=== PATIENT | female | born 1975 | race Caucasian/White ===

== ENCOUNTER 2016-05-12 05:41 | Emergency (ER) | END 2016-05-12 09:08 | disposition home or self-care (01) | DX: R42 Dizziness and giddiness (principal); R40.2252 Coma scale, best verbal response, oriented, at arrival to emergency department; N30.00 Acute cystitis without hematuria; S33.5XXA Sprain of ligaments of lumbar spine, initial encounter; I10 Essential (primary) hypertension; R40.2142 Coma scale, eyes open, spontaneous, at arrival to emergency department; R40.2362 Coma scale, best motor response, obeys commands, at arrival to emergency department; X58.XXXA Exposure to other specified factors, initial encounter; Y92.9 Unspecified place or not applicable | CPT/HCPCS: 81001; 81003; 87086; J7030; Z7610 ==

== ENCOUNTER 2016-08-13 15:23 | Emergency (ER) | payer SELFPAY ==
[~2016-08-13] VITALS: Ht 162.6 cm; Wt 78.0 kg
[~2016-08-13 15:23] MED LIST: CEPH-443 PO; OXYC-279 PO
[2016-08-13 15:29] VITALS: Ht 162.6 cm; Wt 78.0 kg
== END 2016-08-13 19:58 | disposition left against medical advice (07) ==
LOC: FTE 15:23
DX: Z53.21 Procedure and treatment not carried out due to patient leaving prior to being seen by health care provider (principal)

== ENCOUNTER 2016-08-24 05:19 | Emergency (ER) | payer OTHER ==
[~2016-08-24] VITALS: Ht 162.6 cm; Wt 79.5 kg
[2016-08-24 05:25] VITALS: Ht 162.6 cm; Wt 79.5 kg
[2016-08-24 06:09] LABS: BASOPHIL # 0.1 10^3/ul (0.0-0.1); BASOPHILS % 0.5 % (0.0-2.0); EOSINOPHILS # 0.2 10^3/ul (0.0-0.5); EOSINOPHILS % 1.7 % (0.0-7.0); HEMOGLOBIN 13.1 g/dl (12.0-16.0); LYMPHOCYTES # 2.3 10^3/ul (0.8-2.9); LYMPHOCYTES % 21.5 % (15.0-51.0); MEAN CORPUSCULAR HEMOGLOBIN 28.9 pg (29.0-33.0); MEAN CORPUSCULAR HGB CONC 32.8 g/dl (32.0-37.0); MEAN CORPUSCULAR VOLUME 88.1 fl (82.0-101.0); MEAN PLATELET VOLUME 10.4 fl (7.4-10.4); MONOCYTE # 0.8 10^3/ul (0.3-0.9); MONOCYTES % 6.9 % (0.0-11.0); NEUTROPHIL # 7.5 10^3/ul (1.6-7.5); NEUTROPHILS % 69.1 % (39.0-77.0); PLATELET COUNT 378 10^3/UL (140-415); RED BLOOD COUNT 4.54 10^6/ul (4.20-5.40); RED CELL DISTRIBUTION WIDTH 14.5 % (11.5-14.5); WHITE BLOOD COUNT 10.9 10^3/ul (4.8-10.8)
[2016-08-24] MEDS ORDERED: SOD CHLORIDE 0.9% 1,000 ML IV STA (06:12)
[2016-08-24] MEDS ORDERED: FAMOTIDINE 20 MG INJ IV STA (06:12)
[2016-08-24 06:24] LABS: ADD SCAN DIFF NO
[2016-08-24 06:42] LABS: ALBUMIN 4.6 g/dl (3.3-4.9); ALBUMIN/GLOBULIN RATIO 1.43; BILIRUBIN,INDIRECT 1.1 mg/dl (0-1.1); BILIRUBIN,TOTAL 1.1 mg/dl (0.2-1.3); CALCIUM 9.3 mg/dl (8.4-10.2); CREATININE 0.71 mg/dl (0.44-1.00); TOTAL PROTEIN 7.8 g/dl (6.1-8.1)
[2016-08-24 06:59] LABS: ADD UMIC YES; UR ASCORBIC ACID NEGATIVE (NEGATIVE); UR BACTERIA FEW /HPF (NONE SEEN); UR BILIRUBIN (Dip) NEGATIVE (NEGATIVE); UR BLOOD (Dip) NEGATIVE (NEGATIVE); UR CLARITY SLIGHTLY CLOUDY (CLEAR); UR COLOR YELLOW (YELLOW); UR GLUCOSE (Dip) NEGATIVE (NEGATIVE); UR KETONES (Dip) NEGATIVE (NEGATIVE); UR LEUKOCYTE ESTERASE (Dip) 2+ Leu/ul (NEGATIVE); UR NITRITE (Dip) NEGATIVE (NEGATIVE); UR RBC 2 /HPF (0-5); UR SPECIFIC GRAVITY (Dip) 1.015 (1.003-1.030); UR SQUAMOUS EPITHELIAL CELL FEW /HPF (FEW); UR TOTAL PROTEIN (Dip) NEGATIVE (NEGATIVE); UR UROBILINOGEN (Dip) NEGATIVE (NEGATIVE)
--- NOTE | 2016-08-24 07:04 | ERD ---
ER Documentation Chief Complaint Date/Time DATE: 08/24/16 TIME: 07:02 Chief Complaint bib ra 100, c/o LUQ ap radiating to RLQ. +dizziness/diarrhea. HPI This 41-year-old female presents to the emergency room for evaluation of abdominal bloating. She states that she has been constipated, and has been given MiraLAX and magnesium citrate at a different facility. The patient states that she has been passing gas and has been going to the restroom however she began to have some abdominal cramping and some mild bloating. She denies any nausea, vomiting, or abdominal pain at this time ROS All systems reviewed and are negative except as per history of present illness. Medications Home Meds Active Scripts Oxycodone HCl/Acetaminophen (Percocet 5-325 mg Tablet) 1 Each Tablet, 1 EACH PO TID for PAIN AND/OR INFLAMMATION, #9 TAB Prov:RAUDEL GRIFFIN MD 05/12/16 Cephalexin* (Keflex*) 500 Mg Capsule, 500 MG PO QID for 5 Days, CAP Prov:RAUDEL GRIFFIN MD 05/12/16 Allergies Allergies: Coded Allergies: levofloxacin (Verified Allergy, Mild, RASH, 08/24/16) PMhx/Soc History of Surgery: Yes (right retinal detachment surgery 05/2014, BACK SURGERY X3) Anesthesia Reaction: No Hx Neurological Disorder: No Hx Respiratory Disorders: No Hx Cardiac Disorders: Yes (HTN) Hx Psychiatric Problems: No Hx Miscellaneous Medical Probl: Yes (BLADDER SURGERY) Hx Alcohol Use: Yes (SOCIALLY) Hx Substance Use: No Hx Tobacco Use: No Smoking Status: Never smoker Physical Exam Vitals Vital Signs Date Time Temp Pulse Resp B/P Pulse Ox O2 Delivery O2 Flow Rate FiO2 08/24/16 05:25 98.2 76 18 107/56 98 Physical Exam INITIAL VITAL SIGNS: Reviewed by me GENERAL: The patient is well developed and appropriate for usual state of health in no apparent distress HEENT: Pupils equal, round, and reactive to light. EOMI. There is no scleral icterus. NECK: C-spine is soft and supple, there is no meningismus. There is no cervical lymphadenopathy. LUNGS: Clear to auscultation bilaterally. There are no rales, wheezes or rhonchi. HEART: Regular rate and rhythm, no murmurs, clicks, rubs or gallops. ABDOMEN: Soft, non-tender, non-distended. There are bowel sounds in all four quadrants. No rebound or guarding. EXTREMITIES: There is no peripheral cyanosis or edema. No focal swelling or erythema. NEUROLOGICAL: The patient moves all four extremities with 5/5 strength. Cranial nerves II - XII are intact. Normal gait. Alert and oriented SKIN: There is no apparent rash or petechiae. HEME/LYMPHATIC: There is no evidence of excessive bruising or lymphedema. PSYCHIATRIC: The patient does not appear anxious or depressed. Result Diagram: 08/24/16 0550 08/24/16 0550 Results 24 hrs Laboratory Tests Test 08/24/16 05:50 White Blood Count 10.910^3/ul Red Blood Count 4.5410^6/ul Hemoglobin 13.1g/dl Hematocrit 40.0% Mean Corpuscular Volume 88.1fl Mean Corpuscular Hemoglobin 28.9pg Mean Corpuscular Hemoglobin Concent 32.8g/dl Red Cell Distribution Width 14.5% Platelet Count 07378^3/UL Mean Platelet Volume 10.4fl Neutrophils % 69.1% Lymphocytes % 21.5% Monocytes % 6.9% Eosinophils % 1.7% Basophils % 0.5% Nucleated Red Blood Cells % 0.0/100WBC Neutrophils # 7.510^3/ul Lymphocytes # 2.310^3/ul Monocytes # 0.810^3/ul Eosinophils # 0.210^3/ul Basophils # 0.110^3/ul Nucleated Red Blood Cells # 0.010^3/ul Urine Color YELLOW Urine Clarity SLIGHTLY CLOUDY Urine pH 7.0 Urine Specific [place] 1.015 Urine Ketones NEGATIVEmg/dL Urine Nitrite NEGATIVEmg/dL Urine Bilirubin NEGATIVEmg/dL Urine Urobilinogen NEGATIVEmg/dL Urine Leukocyte Esterase 2+Felipe/ul Urine Microscopic RBC 2/HPF Urine Microscopic WBC 6/HPF Urine Squamous Epithelial Cells FEW/HPF Urine Bacteria FEW/HPF Urine Hemoglobin NEGATIVEmg/dL Urine Glucose NEGATIVEmg/dL Urine Total Protein NEGATIVEmg/dl Sodium Level 142mmol/L Potassium Level 4.0mmol/L Chloride Level 102mmol/L Carbon Dioxide Level 24mmol/L Anion Gap 20 Blood Urea Nitrogen 10mg/dl Creatinine 0.71mg/dl Glucose Level 99mg/dl Calcium Level 9.3mg/dl Total Bilirubin 1.1mg/dl Direct Bilirubin 0.00mg/dl Indirect Bilirubin 1.1mg/dl Aspartate Amino Transf (AST/SGOT) 20IU/L Alanine Aminotransferase (ALT/SGPT) 30IU/L Alkaline Phosphatase 55IU/L Total Protein 7.8g/dl Albumin 4.6g/dl Globulin 3.20g/dl Albumin/Globulin Ratio 1.43 Lipase 71U/L Current Medications Medications (Trade) Dose Ordered Sig/Dulce Route PRN Reason Start Time Stop Time Status Last Admin Dose Admin Sodium Chloride (NS) 1,000 ml @ 1,000 mls/hr Q1H STAT IV 08/24/16 06:12 08/24/16 07:11 08/24/16 06:22 Famotidine (Pepcid Iv) 20 mg ONCE STAT IV 08/24/16 06:12 08/24/16 06:13 DC 08/24/16 06:23 Procedures/MDM This 41-year-old female presents to the emergency room for evaluation of abdominal cramping. This patient had no tenderness on my examination, negative Trevizo sign, negative McBurney point tenderness, no CVAT. Lab work is within normal limits and the patient was given Pepcid. She was complaining of a burning sensation in the midportion of her stomach which is worse with spicy foods. I do believe this patient is suffering from gastritis and she will be discharged at this time with a prescription for Zantac. Differential diagnoses entertained was broad with potential high acuity. Patient has been evaluated for appendicitis, cholecystitis, and other high risk medical and surgical causes of abdominal pain. Ultimately the patient's evaluation is nondiagnostic. Based on the patient's lack of risk factors, as well as the patient's clinical, laboratory, and imaging data, the patient appears to be low risk for these high risk causes of abdominal pain. Departure Diagnosis: Primary Impression: Abdominal cramps Condition: Stable ROBERTO HERNANDEZ DO Aug 24, 2016 07:04
[2016-08-24] MEDS ORDERED: RANI150T9 PO (07:07)
[2016-08-24 07:15] VITALS: BP 113/65; PULSE 62; RESP 18; TEMP 98.7
== END 2016-08-24 07:16 | disposition home or self-care (01) ==
LOC: E/R 05:19
DX: R10.12 Left upper quadrant pain (principal); I10 Essential (primary) hypertension
CPT/HCPCS: 80053; 81001; 83690; 85025; J7030; Z7610; 36415; 96374

== ENCOUNTER 2017-01-10 15:23 | Emergency (ER) | payer OTHER ==
[~2017-01-10] VITALS: Ht 165.1 cm; Wt 79.0 kg
[~2017-01-10 15:23] MED LIST changes: +RANI150T9 PO
[2017-01-10 15:28] VITALS: Ht 165.1 cm; Wt 79.0 kg
[2017-01-10 16:23] LABS: BASOPHILS % 0.4 % (0.0-2.0); EOSINOPHILS # 0.2 10^3/ul (0.0-0.5); EOSINOPHILS % 1.5 % (0.0-7.0); HEMATOCRIT 39.2 % (37.0-47.0); HEMOGLOBIN 12.8 g/dl (12.0-16.0); LYMPHOCYTES # 2.9 10^3/ul (0.8-2.9); LYMPHOCYTES % 25.8 % (15.0-51.0); MEAN CORPUSCULAR HEMOGLOBIN 29.6 pg (29.0-33.0); MEAN CORPUSCULAR HGB CONC 32.7 g/dl (32.0-37.0); MEAN CORPUSCULAR VOLUME 90.7 fl (82.0-101.0); MEAN PLATELET VOLUME 10.4 fl (7.4-10.4); MONOCYTE # 0.8 10^3/ul (0.3-0.9); MONOCYTES % 7.4 % (0.0-11.0); NEUTROPHIL # 7.3 10^3/ul (1.6-7.5); NEUTROPHILS % 64.5 % (39.0-77.0); PLATELET COUNT 357 10^3/UL (140-415); RED BLOOD COUNT 4.32 10^6/ul (4.20-5.40); RED CELL DISTRIBUTION WIDTH 14.1 % (11.5-14.5); WHITE BLOOD COUNT 11.2 10^3/ul (4.8-10.8)
[2017-01-10 16:43] LABS: ALBUMIN 4.1 g/dl (3.3-4.9); ALBUMIN/GLOBULIN RATIO 1.2; BILIRUBIN,INDIRECT 0.7 mg/dl (0-1.1); BILIRUBIN,TOTAL 0.7 mg/dl (0.2-1.3); CALCIUM 9.2 mg/dl (8.4-10.2); CREATININE 0.81 mg/dl (0.44-1.00); POTASSIUM 3.7 mmol/L (3.5-5.1); TOTAL PROTEIN 7.5 g/dl (6.1-8.1)
[2017-01-10 16:44] LABS: ADD UMIC YES; UR ASCORBIC ACID NEGATIVE (NEGATIVE); UR BACTERIA FEW /HPF (NONE SEEN); UR BILIRUBIN (Dip) NEGATIVE (NEGATIVE); UR BLOOD (Dip) NEGATIVE (NEGATIVE); UR CLARITY SLIGHTLY CLOUDY (CLEAR); UR COLOR YELLOW (YELLOW); UR GLUCOSE (Dip) NEGATIVE (NEGATIVE); UR KETONES (Dip) NEGATIVE (NEGATIVE); UR LEUKOCYTE ESTERASE (Dip) 2+ Leu/ul (NEGATIVE); UR NITRITE (Dip) NEGATIVE (NEGATIVE); UR RBC 5 /HPF (0-5); UR SPECIFIC GRAVITY (Dip) 1.018 (1.003-1.030); UR SQUAMOUS EPITHELIAL CELL FEW /HPF (FEW); UR TOTAL PROTEIN (Dip) NEGATIVE (NEGATIVE); UR UROBILINOGEN (Dip) NEGATIVE (NEGATIVE)
--- NOTE | 2017-01-10 17:47 | ERD ---
ER Documentation Chief Complaint Chief Complaint complains of abdominal pain x 2 days HPI 41y/o female patient with history of back surgery, presents to the emergency department c/o gradual onset of abdominal pain, constant, diffuse, that got worse during the last 2 days. The patient has been experiencing similar pain for the last 3 years. The pain is colicky, rated 6/10, without radiation. The symptoms are associated with loose stools 3 per day, without blood or mucus. Aggravating factors: Fatty food. Alleviating factors: Lasting. Denies fever, chills, N/V/D. The patient reports history of previous episodes. Treatment attempted: None. 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 ROS SYSTEMIC symptoms: no fever, chills, no night sweats, no weight loss EYE symptoms: No blurred vision, no eye discharge OTOLARYNGEAL symptoms: No hearing loss. No ear pain, no sore throat CARDIOVASCULAR symptoms: No chest pain or discomfort, no palpitations. PULMONARY symptoms: No dyspnea, no cough, no wheezing. GASTROINTESTINAL symptoms: Per HPI MUSCULOSKELETAL symptoms: No arthralgias, no muscle aches. NEUROLOGY symptoms: No confusion, no syncope, no numbness or tingling. SKIN no rashes Medications Home Meds Active Scripts Ranitidine Hcl* (Ranitidine Hcl*) 150 Mg Tablet, 150 MG PO Q12, #60 TAB Prov:CELSO NICHOLAS MD 01/10/17 Dicyclomine Hcl* (Bentyl*) 10 Mg Capsule, 10 MG PO QID for 30 Days, CAP Prov:CELSO NICHOLAS MD 01/10/17 Ranitidine Hcl* (Zantac*) 150 Mg Tablet, 150 MG PO BID Y for EPIGASTRIC PAIN, # 30 TAB Prov:ROBERTO HERNANDEZ DO 08/24/16 Oxycodone HCl/Acetaminophen (Percocet 5-325 mg Tablet) 1 Each Tablet, 1 EACH PO TID for PAIN AND/OR INFLAMMATION, #9 TAB Prov:RAUDEL GRIFFIN MD 05/12/16 Cephalexin* (Keflex*) 500 Mg Capsule, 500 MG PO QID for 5 Days, CAP Prov:RAUDEL GRIFFIN MD 05/12/16 Allergies Allergies: Coded Allergies: levofloxacin (Verified Allergy, Mild, RASH, 08/24/16) PMhx/Soc History of Surgery: Yes (right retinal detachment surgery 05/2014, BACK SURGERY X3) Anesthesia Reaction: No Hx Neurological Disorder: No Hx Respiratory Disorders: No Hx Cardiac Disorders: Yes (HTN) Hx Psychiatric Problems: No Hx Miscellaneous Medical Probl: Yes (BLADDER SURGERY) Hx Alcohol Use: Yes (SOCIALLY) Hx Substance Use: No Hx Tobacco Use: No Smoking Status: Never smoker Physical Exam Vitals Vital Signs Date Time Temp Pulse Resp B/P Pulse Ox O2 Delivery O2 Flow Rate FiO2 01/10/17 15:28 98.2 83 20 117/60 98 Physical Exam Patient is in no acute distress, vital signs stable. Alert and fully oriented. EYES: PERRLA, EOMI, Sclera and conjunctiva appear normal. EARS: Canals clear, tympanic membranes WNL THROAT: Normal oropharynx. NECK: Supple, No lymphadenopathy. Full ROM without pain or tenderness. HEART: RRR, no rubs, murmurs, clicks or gallops. LUNGS: Clear to auscultation. ABDOMEN: Soft, non-tender without masses or hepatosplenomegaly. EXTREMITIES: No edema bilaterally. BACK: Full ROM, no deformity, normal back exam NEURO: Cranial nerves grossly intact, no motor or sensory deficit Result Diagram: 01/10/17 1615 01/10/17 1615 Results 24 hrs Laboratory Tests Test 01/10/17 16:15 01/10/17 16:20 White Blood Count 11.210^3/ul Red Blood Count 4.3210^6/ul Hemoglobin 12.8g/dl Hematocrit 39.2% Mean Corpuscular Volume 90.7fl Mean Corpuscular Hemoglobin 29.6pg Mean Corpuscular Hemoglobin Concent 32.7g/dl Red Cell Distribution Width 14.1% Platelet Count 92650^3/UL Mean Platelet Volume 10.4fl Neutrophils % 64.5% Lymphocytes % 25.8% Monocytes % 7.4% Eosinophils % 1.5% Basophils % 0.4% Nucleated Red Blood Cells % 0.0/100WBC Neutrophils # 7.310^3/ul Lymphocytes # 2.910^3/ul Monocytes # 0.810^3/ul Eosinophils # 0.210^3/ul Basophils # 0.010^3/ul Nucleated Red Blood Cells # 0.010^3/ul Sodium Level 145mmol/L Potassium Level 3.7mmol/L Chloride Level 105mmol/L Carbon Dioxide Level 26mmol/L Anion Gap 18 Blood Urea Nitrogen 11mg/dl Creatinine 0.81mg/dl Glucose Level 101mg/dl Calcium Level 9.2mg/dl Total Bilirubin 0.7mg/dl Direct Bilirubin 0.00mg/dl Indirect Bilirubin 0.7mg/dl Aspartate Amino Transf (AST/SGOT) 20IU/L Alanine Aminotransferase (ALT/SGPT) 40IU/L Alkaline Phosphatase 56IU/L Total Protein 7.5g/dl Albumin 4.1g/dl Globulin 3.40g/dl Albumin/Globulin Ratio 1.20 Lipase 86U/L Urine Color YELLOW Urine Clarity SLIGHTLY CLOUDY Urine pH 5.0 Urine Specific [place] 1.018 Urine Ketones NEGATIVEmg/dL Urine Nitrite NEGATIVEmg/dL Urine Bilirubin NEGATIVEmg/dL Urine Urobilinogen NEGATIVEmg/dL Urine Leukocyte Esterase 2+Felipe/ul Urine Microscopic RBC 5/HPF Urine Microscopic WBC 3/HPF Urine Squamous Epithelial Cells FEW/HPF Urine Bacteria FEW/HPF Urine Hemoglobin NEGATIVEmg/dL Urine Glucose NEGATIVEmg/dL Urine Total Protein NEGATIVEmg/dl [place] [id number] Radiology Main Line: [phone] DIAGNOSTIC IMAGING REPORT Patient: JOSE MENDOZA : 1975 Age: 41 Sex: F MR #: [id number] DOS: 01/10/17 1600 Ordering MD: CELSO NICHOLAS MD Location: [facility] Room/Bed: PROCEDURE: CT abdomen and pelvis without contrast. Site of service: emergency room. CLINICAL INDICATION: Periumbilical abdominal pain, diarrhea TECHNIQUE: CT scan of the abdomen and pelvis without contrast was performed on the CT scanner. The patient was scanned without intravenous contrast. Oral contrast was not administered. 3-D post processing coronal and sagittal re- formations were obtained from the axial source images. DICOM images are available. Exam D L P [address] D V O L 12 mgy. This exam is limited due to lack of intravenous contrast. One or more of the following dose reduction techniques were used: Automated exposure control Adjustment of the mA and/or kV according to patient size. Use of iterative reconstruction technique. COMPARISON: None FINDINGS: CT abdomen: The lung bases are clear. The heart size is normal, without pericardial thickening or effusion. The liver is normal in size and density without focal mass or intrahepatic biliary dilatation. The spleen is normal in size and homogeneous in density. The stomach is partially collapsed, but is grossly unremarkable. The pancreas as visualized is normal. The gallbladder has been resected. The adrenal glands are symmetric and normal. The kidneys are symmetrically unremarkable as well. No renal calculus or obstructive uropathy or suspicious, mass lesion is seen. The aorta is of normal caliber. There is no retroperitoneal lymphadenopathy. The travis hepatis region is clear. The bowel and mesentery, as visualized, are equally unremarkable. CT pelvis: The small bowel loops situated within the pelvis are unremarkable. The appendix is normal. The sigmoid colon and rectum are all unremarkable. No mass , lymphadenopathy, or free fluid is seen. No acute inflammation is seen. The pelvic organs are normal. The pelvic sidewalls and inguinal regions are clear. Fusion hardware is present within the lower lumbar spine. No osteolytic or osteoblastic lesion is detected. Bilateral breast implants are also present. IMPRESSION: 1. No acute abnormality. No bowel obstruction, acute inflammation, abscess, or perforation. Status post cholecystectomy, bilateral breast implants, and fusion hardware in the lower lumbar spine. Otherwise, negative exam. RPTAT: QQ .Mira Miranda MD, MD Date Time Electronically viewed and signed by .Mira Miranda MD, MD on 01/10/2017 18:02 .F/ CC: CELSO NICHOLAS MD Procedures/[facility] 41y/o female patient with history of back surgeries, presents to the ED c/o worsening of abdominal pain for 2 days. Vital signs stable, Physical exam unremarkable. Differential diagnosis include but not limited to: UTI, colitis, gastroenteritis, kidney stones, malabsorption syndrome, irritable bowel syndrome , inflammatory bowel syndrome, food intolerance, medication side effect, pancreatitis, diverticulitis. Pertinent Data: Labs: CBC: normal, CMP: normal kidney and liver function, normal electrolytes. Lipase: normal Radiology: CT Abdomen: 1. No acute abnormality. No bowel obstruction, acute inflammation, abscess, or perforation. Status post cholecystectomy, bilateral breast implants, and fusion hardware in the lower lumbar spine. Otherwise, negative exam. Physical examination and clinical presentation consistent most likely with irritable bowel syndrome. During the ED course the patient remained stable no new complaints. Results and clinical impression discussed with patient who agrees with management. The patient is stable to be treated outpatient and will be discharged home with a Rx for bentyl and ranitidine. Side effects of prescribed medications (headache, rash, nausea, vomiting, diarrhea) were reviewed. The patient was instructed to follow up with the primary care provider in the next 48h. If symptoms persist, worsen or new symptoms develop, then patient should return to the ED immediately. Instructions explained and given to patient in [Slovak] with acknowledgment and demonstrated understanding. Disclaimer: Inadvertent spelling and grammatical errors are likely due to EHR/ dictation software use and do not reflect on the overall quality of patient care. Also, please note that the electronic time recorded on this note does not necessarily reflect the actual time of the patient encounter. Departure Condition: Stable Patient Instructions: Irritable Bowel Syndrome Additional Instructions: Thank you very much for allowing us to participate in your care. Your health and safety is our top priority at [facility]. Have prescriptions filled and follow precisely the directions on the label. Follow-up with primary care provider during the next 4 days and bring all the information and medications prescribed. If illness has not improved in 2 days, then make an appointment with primary care provider. If the provider is unavailable, return to the Emergency Department immediately. CELSO NICHOLAS MD Jan 10, 2017 17:46 CELSO NICHOLAS MD Jan 10, 2017 17:46
--- NOTE | 2017-01-10 18:02 | RADRPT ---
PROCEDURE: CT abdomen and pelvis without contrast. Site of service: emergency room. CLINICAL INDICATION: Periumbilical abdominal pain, diarrhea TECHNIQUE: CT scan of the abdomen and pelvis without contrast was performed on the CT scanner. Th e patient was scanned without intravenous contrast. Oral contrast was not administered. 3-D post p rocessing coronal and sagittal re-formations were obtained from the axial source images. DICOM imag es are available. Exam D L P [address] D V O L 12 mgy. This exam is limited due to lack of intravenous contrast. One or more of the following dose reduction techniques were used: Automated exposure control Adjustment of the mA and/or kV according to patient size. Use of iterative reconstruction technique. COMPARISON: None FINDINGS: CT abdomen: The lung bases are clear. The heart size is normal, without pericardial thickening or effusion. The liver is normal in size and density without focal mass or intrahepatic biliary dilatation. The spleen is normal in size and homogeneous in density. The stomach is partially collapsed, but is nini ssly unremarkable. The pancreas as visualized is normal. The gallbladder has been resected. The adrenal glands are symmetric and normal. The kidneys are symmetrically unremarkable as well. N o renal calculus or obstructive uropathy or suspicious, mass lesion is seen. The aorta is of normal caliber. There is no retroperitoneal lymphadenopathy. The travis hepatis marily on is clear. The bowel and mesentery, as visualized, are equally unremarkable. CT pelvis: The small bowel loops situated within the pelvis are unremarkable. The appendix is normal. The sig moid colon and rectum are all unremarkable. No mass, lymphadenopathy, or free fluid is seen. No ac sioux inflammation is seen. The pelvic organs are normal. The pelvic sidewalls and inguinal regions are clear. Fusion hardware is present within the lower lumbar spine. No osteolytic or osteoblastic lesion is de tected. Bilateral breast implants are also present. IMPRESSION: 1. No acute abnormality. No bowel obstruction, acute inflammation, abscess, or perforation. Status p ost cholecystectomy, bilateral breast implants, and fusion hardware in the lower lumbar spine. Other lama, negative exam. RPTAT: QQ .Mira Miranda MD, MD Date Time Electronically viewed and signed by .Mira Miranda MD, on 01/10/2017 18:02 .F/
[2017-01-10] MEDS ORDERED: RANI150T5 PO (18:21)
[2017-01-10] MEDS ORDERED: DICY10CA60 PO (18:21)
== END 2017-01-10 18:33 | disposition home or self-care (01) ==
LOC: FTE 15:23
DX: R10.84 Generalized abdominal pain (principal)
CPT/HCPCS: 36415; 74176; 80053; 81001; 83690; 85025; Z7502

== ENCOUNTER 2017-01-27 19:33 | Emergency (ER) | payer SELFPAY ==
[~2017-01-27] VITALS: Ht 162.6 cm; Wt 78.0 kg
[~2017-01-27 19:33] MED LIST changes: +DICY10CA60 PO; +RANI150T5 PO
[2017-01-27 19:38] VITALS: Ht 162.6 cm; Wt 78.0 kg
== END 2017-01-27 20:30 | disposition left against medical advice (07) ==
LOC: FTE 19:33 → E/R 20:30
DX: Z53.21 Procedure and treatment not carried out due to patient leaving prior to being seen by health care provider (principal)

== ENCOUNTER 2017-10-06 07:52 | Day surgery (SDC) | END 2017-10-06 09:44 | disposition home or self-care (01) ==

== ENCOUNTER 2018-02-04 11:32 | Emergency (ER) | END 2018-02-04 13:33 | disposition home or self-care (01) ==